=== PATIENT | female | born 1970 | race Caucasian/White ===

== ENCOUNTER 2016-10-30 09:05 | Emergency (ER) | payer OTHER ==
[~2016-10-30] VITALS: Ht 154.9 cm; Wt 122.5 kg
--- NOTE | ~2016-10-30 | EKG ---
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
[~2016-10-30 09:05] MED LIST: AMOXIL 875 MG875 M1 PO; ANTIPYRINE-BENZ10 ML OT; BACTRIM DS TAB1 EACH PO; CEFDINIR300 MG PO; CIPRO500 MG PO; CIPROFLOXACIN500 M1 PO; IBUPROFEN 200200 M1 PO; LEVOTHYROXINE0.05 MG PO; NAPROSYN500 MG PO; NON-ASPIRIN325 MG PO; NORCO 5-325 TA1 EACH PO; PHENERGAN 25 MG25 M1 PO; ZANTAC 150MG T150 MG PO; ZOFRAN4 MG PO
[2016-10-30 09:20] LABS: ABSOLUTE NEUTROPHILS 10.2 thou/uL (1.4-8.2); BASOPHILS 0.6 % (0.0-2.0); EOSINOPHILS 0.6 % (0.0-3.0); HEMATOCRIT 35.5 % (37.0-47.0); HEMOGLOBIN 11.8 gm/dL (12.0-15.0); LYMPHOCYTES 10.5 % (24.0-44.0); MCH 26.2 pg (26.0-34.0); MCHC 33.2 g/dL (28.0-37.0); MCV 78.9 fL (80.0-100.0); MONOCYTES 5.1 % (1.0-8.0); PLATELET COUNT 289 thou/uL (150-400); POLYS 83.2 % (36.0-66.0); RDW 16.2 % (10.5-14.5); WBC 12.3 thou/uL (4.0-11.0)
[2016-10-30 09:22] LABS: MANUAL DIFF NO
[2016-10-30 09:28] LABS: CALCIUM 8.6 mg/dL (8.5-10.1); CREATININE 0.7 mg/dL (0.6-1.0); POTASSIUM 3.9 mmol/L (3.5-5.1)
[2016-10-30 09:35] LABS: ALBUMIN 3.8 g/dL (3.4-5.0); TOTAL BILIRUBIN 0.5 mg/dL (<0.1-1.0); TOTAL PROTEIN 7.9 g/dL (6.4-8.2)
[2016-10-30 09:39] LABS: URINE BILIRUBIN NEGATIVE (Negative); URINE BLOOD 3+ (Negative); URINE COLOR YELLOW; URINE GLUCOSE-RANDOM* NEGATIVE (Negative); URINE KETONES NEGATIVE (Negative); URINE NITRITE NEGATIVE (Negative); URINE PROTEIN (DIPSTICK) TRACE (Negative); URINE SPECIFIC GRAVITY 1.015 (1.003-1.035); URINE UROBILINOGEN 0.2 E.U./dl (0.2-1.0)
[2016-10-30 10:04] LABS: SQUAMOUS >10 Many /LPF (0-3)
[2016-10-30 10:05] LABS: BACTERIA 1-9 Few /HPF (None Seen); CASTS None Seen /LPF (None Seen); CRYSTALS None Seen /LPF (None Seen); URINE RBC >20 Many /HPF (0-2); URINE WBC 0-5 Rare /HPF (0-5)
[2016-10-30] MEDS ORDERED: ZPAK PO (12:22)
[2016-10-30] MEDS ORDERED: GUAIFEN-CODEIN120 ML PO (12:27)
== END 2016-10-30 13:21 | disposition home or self-care (01) ==
LOC: ER 09:05
PROVIDERS: Physician Assistant
DX: J18.9 Pneumonia, unspecified organism (principal); R10.11 Right upper quadrant pain; R10.12 Left upper quadrant pain

== ENCOUNTER 2016-11-12 16:45 | Emergency (ER) | payer OTHER ==
[~2016-11-12] VITALS: Ht 165.1 cm; Wt 122.5 kg
[~2016-11-12 16:45] MED LIST changes: +GUAIFEN-CODEIN120 ML PO; +ZPAK PO
[2016-11-12 17:01] LABS: URINE BILIRUBIN NEGATIVE (Negative); URINE BLOOD 2+ (Negative); URINE COLOR YELLOW; URINE GLUCOSE-RANDOM* NEGATIVE (Negative); URINE KETONES NEGATIVE (Negative); URINE NITRITE POSITIVE (Negative); URINE PROTEIN (DIPSTICK) 1+ (Negative); URINE SPECIFIC GRAVITY >= 1.030 (1.003-1.035); URINE UROBILINOGEN 0.2 E.U./dl (0.2-1.0)
[2016-11-12 17:13] LABS: SQUAMOUS >10 Many /LPF (0-3)
[2016-11-12 17:15] LABS: BACTERIA >30 Many /HPF (None Seen); CASTS None Seen /LPF (None Seen); CRYSTALS None Seen /LPF (None Seen); URINE WBC >25 Many /HPF (0-5)
[2016-11-12 17:16] LABS: ABSOLUTE NEUTROPHILS 5.6 thou/uL (1.4-8.2); BASOPHILS 0.5 % (0.0-2.0); EOSINOPHILS 1.4 % (0.0-3.0); HEMATOCRIT 34.1 % (37.0-47.0); HEMOGLOBIN 11.5 gm/dL (12.0-15.0); LYMPHOCYTES 24.2 % (24.0-44.0); MCH 26.8 pg (26.0-34.0); MCHC 33.7 g/dL (28.0-37.0); MCV 79.8 fL (80.0-100.0); MONOCYTES 6.4 % (1.0-8.0); PLATELET COUNT 386 thou/uL (150-400); POLYS 67.5 % (36.0-66.0); RBC 4.27 mil/uL (4.20-5.00); RDW 16.4 % (10.5-14.5); WBC 8.4 thou/uL (4.0-11.0)
[2016-11-12 17:17] LABS: MANUAL DIFF NO
[2016-11-12 17:24] LABS: ANION GAP 7 mmol/L (7-16); BUN 12 mg/dL (7-18); CHLORIDE 107 mmol/L (98-107); CO2 24 mmol/L (21-32); CREATININE 0.7 mg/dL (0.6-1.0); GLUCOSE 90 mg/dL (74-106); POTASSIUM 3.8 mmol/L (3.5-5.1); SODIUM 138 mmol/L (136-145)
[2016-11-12 17:29] LABS: ALBUMIN 3.6 g/dL (3.4-5.0); ALKALINE PHOSPHATASE 98 U/L (46-116); DIRECT BILIRUBIN < 0.1 mg/dL (<0.1-0.3); SGOT 15 U/L (15-37); SGPT 18 U/L (30-65); TOTAL BILIRUBIN 0.2 mg/dL (<0.1-1.0); TOTAL PROTEIN 7.7 g/dL (6.4-8.2)
[2016-11-12] MEDS ORDERED: NAPROSYN500 MG PO (18:44)
[2016-11-12] MEDS ORDERED: CIPRO500 MG PO (18:44)
== END 2016-11-12 19:11 | disposition home or self-care (01) ==
LOC: ER 16:45
PROVIDERS: Nurse Practitioner
DX: N39.0 Urinary tract infection, site not specified (principal)

== ENCOUNTER 2017-08-01 16:02 | Emergency (ER) | payer BC ==
[~2017-08-01] VITALS: Ht 172.7 cm; Wt 127.0 kg
--- NOTE | ~2017-08-01 | EKG ---
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 : 1970 Requested By: Graicela Almendarez Order Number: [id number] MD: Dalton Crow Measurements Intervals [place] Rate: 84 P: 28 TX: 118 QRS: -1 QRSD: 85 T: 22 QT: 393 QTc: 465 Interpretive Statements Sinus rhythm Minimal ST depression Compared to ECG 10/30/2016 10:00:32 ST (T wave) deviation now present Electronically Signed On 08-01-2017 17:23:26 JUNIOR AUTOMATION ENGINEER by Dalton Crow [email or web address] <ELECTRONICALLY SIGNED> By: Dalton Crow MD, [facility] 08/01/17 1723 29 29 Dalton Crow MD, [facility] /EPI
[2017-08-01 16:04] VITALS: BP 134/94
[2017-08-01] MEDS ORDERED: TUSSIONEX PENN115 ML PO (16:50)
[2017-08-01] MEDS ORDERED: PROAIR HFA8.5 GM INH (16:50)
[2017-09-30] MEDS ORDERED: NORCO 5-325 TA1 EACH PO (18:16)
== END 2017-08-01 17:08 | disposition home or self-care (01) ==
LOC: ER 16:02
DX: J06.9 Acute upper respiratory infection, unspecified (principal); M79.1 Myalgia; R50.9 Fever, unspecified

== ENCOUNTER 2018-06-04 15:19 | Emergency (ER) | payer BC ==
[~2018-06-04] VITALS: Ht 172.7 cm; Wt 122.5 kg
[~2018-06-04 15:19] MED LIST changes: -LEVOTHYROXINE0.05 MG PO; +PROAIR HFA8.5 GM INH; +SYNTHROID175 MCG PO; +TUSSIONEX PENN115 ML PO
[2018-06-04] MEDS ORDERED: PROTONIX40 M2 PO (15:51)
[2018-06-04] MEDS ORDERED: NORCO 5-325 TA1 EACH PO (16:52)
[2018-06-04] MEDS ORDERED: INDOMETHACIN 2525 MG PO (16:52)
[2018-06-04] MEDS ORDERED: NORCO 10-325 T1 EACH PO (17:28)
[2018-06-04 17:46] VITALS: BP 160/73
== END 2018-06-04 17:48 | disposition home or self-care (01) ==
LOC: ER 15:19
DX: I80.01 Phlebitis and thrombophlebitis of superficial vessels of right lower extremity (principal); E03.9 Hypothyroidism, unspecified; M19.90 Unspecified osteoarthritis, unspecified site

== ENCOUNTER 2019-10-26 01:50 | Emergency (ER) | payer OTHER ==
[~2019-10-26] VITALS: Ht 172.7 cm; Wt 127.0 kg
[~2019-10-26 01:50] MED LIST changes: +INDOMETHACIN 2525 MG PO; +NORCO 10-325 T1 EACH PO; +PROTONIX40 M2 PO
[2019-10-26 02:22] LABS: ABSOLUTE NEUTROPHILS 2.8 thou/uL (1.4-8.2); BASOPHILS 0.8 % (0.0-2.0); EOSINOPHILS 2.6 % (0.0-3.0); HEMOGLOBIN 13.1 gm/dL (12.0-15.0); LYMPHOCYTES 43.8 % (24.0-44.0); MCH 28.7 pg (26.0-34.0); MCHC 33.5 g/dL (28.0-37.0); MCV 85.7 fL (80.0-100.0); MONOCYTES 8.1 % (1.0-8.0); PLATELET COUNT 277 thou/uL (150-400); POLYS 44.7 % (36.0-66.0); RBC 4.55 mil/uL (4.20-5.00); RDW 15.2 % (10.5-14.5); WBC 6.3 thou/uL (4.0-11.0)
[2019-10-26 02:29] LABS: CALCIUM 8.7 mg/dL (8.5-10.1); POTASSIUM 3.8 mmol/L (3.5-5.1)
[2019-10-26 02:41] LABS: ALBUMIN 3.9 g/dL (3.4-5.0); TOTAL BILIRUBIN 0.3 mg/dL (<0.1-1.0); TOTAL PROTEIN 7.7 g/dL (6.4-8.2)
[2019-10-26 02:46] LABS: URINE BILIRUBIN NEGATIVE (Negative); URINE BLOOD 1+ (Negative); URINE CLARITY CLEAR; URINE COLOR YELLOW; URINE GLUCOSE-RANDOM* NEGATIVE (Negative); URINE KETONES NEGATIVE (Negative); URINE LEUKOCYTES-REFLEX TRACE (Negative); URINE PROTEIN (DIPSTICK) NEGATIVE (Negative); URINE UROBILINOGEN 0.2 E.U./dl (0.2-1.0)
[2019-10-26 02:47] LABS: URINE NITRITE-REFLEX POSITIVE (Negative)
[2019-10-26 02:52] LABS: BACTERIA-REFLEX >30 Many /HPF (None Seen); CASTS None Seen /LPF (None Seen); CRYSTALS None Seen /LPF (None Seen); MUCUS None Seen strn/LPF (None Seen); SQUAMOUS >10 Many /LPF (0-3); URINE RBC 3-10 Few /HPF (0-2); URINE WBC-REFLEX 0-5 Rare /HPF (0-5)
[2019-10-26] MEDS ORDERED: MIRALAX119 GM PO (04:07)
[2019-10-26 04:23] VITALS: BP 130/82
--- NOTE | 2019-10-29 19:11 | NUR ---
CALLED PATIENT ON 10/29/2019 AT 19:05 AND ASKED PT FOR HER [facility]ERRED [facility] [address] WAS THE INFORMATION. CALLED PHARMACY AND LEFT MESSAGE WITH PRESCRIPTION OF KEFLEX 500 TID FOR [address] DA[address] Bruno PHAM. LEFT HOSPITAL PHONE NUMBER FOR ANY ORDER CLARIFICATION......OLIVER BARBA
== END 2019-10-26 04:25 | disposition home or self-care (01) ==
LOC: ER 01:50
PROVIDERS: Emergency Medicine
DX: R10.11 Right upper quadrant pain (principal); M19.90 Unspecified osteoarthritis, unspecified site; E03.9 Hypothyroidism, unspecified

== ENCOUNTER 2019-12-05 18:42 | Emergency (ER) | payer OTHER ==
[~2019-12-05] VITALS: Ht 167.6 cm; Wt 127.0 kg
[~2019-12-05 18:42] MED LIST changes: +MIRALAX119 GM PO
[2019-12-05 19:30] LABS: ABSOLUTE NEUTROPHILS 3.8 thou/uL (1.4-8.2); BASOPHILS 0.7 % (0.0-2.0); EOSINOPHILS 1.2 % (0.0-3.0); HEMATOCRIT 38.1 % (37.0-47.0); HEMOGLOBIN 12.9 gm/dL (12.0-15.0); LYMPHOCYTES 35.1 % (24.0-44.0); MCH 29.4 pg (26.0-34.0); MCHC 33.9 g/dL (28.0-37.0); MCV 86.9 fL (80.0-100.0); MONOCYTES 6.8 % (1.0-8.0); PLATELET COUNT 281 thou/uL (150-400); POLYS 56.2 % (36.0-66.0); RBC 4.39 mil/uL (4.20-5.00); RDW 15.3 % (10.5-14.5); WBC 6.7 thou/uL (4.0-11.0)
[2019-12-05 19:35] LABS: CALCIUM 8.8 mg/dL (8.5-10.1); POTASSIUM 3.9 mmol/L (3.5-5.1)
[2019-12-05 19:51] LABS: URINE BILIRUBIN NEGATIVE (Negative); URINE BLOOD 1+ (Negative); URINE CLARITY CLEAR; URINE COLOR YELLOW; URINE GLUCOSE-RANDOM* NEGATIVE (Negative); URINE KETONES NEGATIVE (Negative); URINE LEUKOCYTES-REFLEX TRACE (Negative); URINE NITRITE-REFLEX NEGATIVE (Negative); URINE PROTEIN (DIPSTICK) NEGATIVE (Negative)
[2019-12-05 19:51] LABS: ALBUMIN 3.8 g/dL (3.4-5.0); TOTAL BILIRUBIN 0.3 mg/dL (0.2-1.0); TOTAL PROTEIN 7.4 g/dL (6.4-8.2)
[2019-12-05 20:04] LABS: CASTS None Seen /LPF (None Seen); CRYSTALS None Seen /LPF (None Seen); SQUAMOUS 4-10 Moderate /LPF (0-3)
[2019-12-05 20:05] LABS: BACTERIA-REFLEX 1-9 Few /HPF (None Seen); URINE RBC 3-10 Few /HPF (0-2); URINE WBC-REFLEX 0-5 Rare /HPF (0-5)
[2019-12-05 22:12] VITALS: BP 127/74
== END 2019-12-05 22:14 | disposition home or self-care (01) ==
LOC: ER 18:42
PROVIDERS: Student in an Organized Health Care Education/Training Program
DX: R51 Headache (principal); M79.605 Pain in left leg; M79.602 Pain in left arm; M54.2 Cervicalgia; I10 Essential (primary) hypertension; E03.9 Hypothyroidism, unspecified; Z87.891 Personal history of nicotine dependence; Z79.899 Other long term (current) drug therapy

== ENCOUNTER 2020-07-02 06:11 | Emergency (ER) | payer OTHER ==
[~2020-07-02] VITALS: Ht 152.4 cm; Wt 129.3 kg
[2020-07-02 06:21] VITALS: BP 135/70
[2020-07-02] MEDS ORDERED: EUTHYROX150 MCG PO (06:28)
[2020-07-02] MEDS ORDERED: ULTRAM 50MG TAB50 MG PO (06:45)
== END 2020-07-02 07:05 | disposition home or self-care (01) ==
LOC: ER 06:11
DX: M17.0 Bilateral primary osteoarthritis of knee (principal); E03.9 Hypothyroidism, unspecified; Z79.899 Other long term (current) drug therapy